=== PATIENT | female | born 1960 | race Hispanic/Latino ===

== ENCOUNTER 2018-02-27 15:51 | Emergency (ER) | payer BC ==
[2018-02-27 15:59] VITALS: RESP 18; TEMP 99.6; BMI 25.9
[2018-02-27 17:22] LABS: HEMOGLOBIN 11.8 g/dL (12.0-16.0); MEAN CELL VOLUME 97.2 fl (80.0-105.0); MEAN CORPUSCULAR HEMOGLOBIN 32.6 pg (25.0-35.0); MEAN CORPUSCULAR HGB CONC 33.5 g/dl (31.0-37.0); RBC 3.62 10^6/uL (3.5-6.1); RED CELL DISTRIBUTION WIDTH 13.1 % (11.5-14.5); WHITE BLOOD COUNT 6.8 10^3/uL (4.5-11.0)
[2018-02-27 17:23] LABS: BASO # 0.03 K/mm3 (0.0-2.0); BASO % 0.4 % (0.0-3.0); EOS % 0.1 % (1.5-5.0); GRAN # 5.09 (1.4-6.5); GRAN % 74.8 % (50.0-68.0); LYMPH # 1.1 (1.2-3.4); LYMPH % 16.6 % (22.0-35.0); MEAN PLATELET VOLUME 9.4 fl (7.0-11.0); MONO # 0.6 (0.1-0.6); MONO % 8.1 % (1.0-6.0)
--- NOTE | 2018-02-27 18:36 | ED PDOC ---
Arrival/HPI - General Chief Complaint: ENT Problem Time Seen by Provider: 02/27/18 15:53 Historian: Patient - History of Present Illness Narrative History of Present Illness (Text): 02/27/18 18:36 A 57 year old female with no significant past medical history presents to the emergency department sent in by her primary care doctor's office for right ear redness and facial redness/pain from earlier today. Patient states symptoms started 2 days ago and calims to have had intermittent fever at home. Patient reports she has taken tylenol to some relief. Patient denies any recent travel, trauma, change in hearing, drainage from ear, pain with swallowing, pain with eye movement, rhinorrhia, chest pain, shortness of breath, or any other complaints. Time/Duration: Other (2 days) Symptom Onset: Gradual Symptom Course: Unchanged Activities at Onset: Light Context: Other (Doctor's office) Past Medical History - Provider Review Nursing Documentation Reviewed: Yes - Integumentary Hx Squamous Cell Carcinoma: Yes - Psychiatric Hx Substance Use: No - Surgical History Hx Section: Yes (x 3) - Anesthesia Hx Anesthesia: Yes Hx Anesthesia Reactions: No Hx Malignant Hyperthermia: No Family/Social History - Physician Review Nursing Documentation Reviewed: Yes Family/Social History: No Known Family HX Smoking Status: Never Smoked Hx Alcohol Use: No Hx Substance Use: No Allergies/Home Meds Allergies/Adverse Reactions: Allergies No Known Allergies Allergy (Verified 02/27/18 16:01) Review of Systems - Physician Review All systems were reviewed & negative as marked: Yes - Review of Systems Eyes: Other. absent: Eye Pain (no pain with eye movement) ENT: absent: Hearing Changes, Rhinorrhea, Other (no drainage from ear, no pain while swallowing, ) Respiratory: absent: SOB Cardiovascular: absent: Chest Pain Musculoskeletal: Other (facial pain) Skin: Other (Redness to right ear and face) Physical Exam Vital Signs Reviewed: Yes Vital Signs Temp Pulse Resp BP Pulse Ox 02/27/18 15:58 99.6 F 110 H 18 149/105 H 100 Temperature: Afebrile Blood Pressure: Hypertensive Pulse: Tachycardic Respiratory Rate: Normal Appearance: Positive for: Well-Appearing, Non-Toxic Pain Distress: None - Systems Exam Head: Present: Atraumatic, Normocephalic Pupils: Present: PERRL Extroacular Muscles: Present: EOMI Conjunctiva: Present: Normal Ears: No: Other (no mastoid tenderness) Mouth: Present: Moist Mucous Membranes Neck: Present: Normal Range of Motion Respiratory/Chest: Present: Clear to Auscultation, Good Air Exchange. No: Respiratory Distress, Accessory Muscle Use Cardiovascular: Present: Regular Rate and Rhythm, Normal S1, S2. No: Murmurs Abdomen: No: Tenderness, Distention, Peritoneal Signs Back: Present: Normal Inspection Upper Extremity: Present: Normal Inspection. No: Cyanosis, Edema Lower Extremity: Present: Normal Inspection. No: Edema Neurological: Present: GCS=15, CN II-XII Intact, Speech Normal Skin: Present: Warm (Warm to touch), Erythematous (+erythema to right pinnae, erythema to anterior and posterioir to same right pinnae) Psychiatric: Present: Alert, Oriented x 3, Normal Insight, Normal Concentration Medical Decision Making ED Course and Treatment: 02/27/18 18:48 Impression: 57 year old female presenting with right ear redness and facial redness/pain. Plan: -- CMP -- Keflex -- Bactrim DS tablet -- Blood culture -- CT of the temporal bones without contrast -- Reassess and disposition Progress Notes: 02/27/18 18:50 Case discussed with nurse practitioner covering Dr. Gomes, if work up negative, patient can be treated for cellulitis in outpatient facility. 02/27/18 18:53 Procedure: CT of the temporal bones without contrast Impression: There are mild infiltration changes within the subcutaneous tissues- fat overlying the right lateral upper of face from approximately the level lower aspect of the parotid gland inferiorly over the right zygomatic arch and po steriorly to the level of the external auditory canal possibly involving the right pinna. Findings most consistent with a nonspecific cellulitis. The subjacent parotid gland appears unremarkable. There are no parotid masses or calcifications seen. No subcutaneous emphysema. No drainable fluid or abscess collection seen. Dictator: Akash Mims MD - Lab Interpretations Lab Results: 02/27/18 17:09 Lab Results 02/27/18 17:09: WBC 6.8, RBC 3.62, Hgb 11.8 L, Hct 35.2 L, MCV 97.2, MCH 32.6, MCHC 33.5, RDW 13.1, Plt Count 252, MPV 9.4, Gran % 74.8 H, Lymph % (Auto) 16.6 L, H[place]eth % (Auto) 8.1 H, Eos % (Auto) 0.1 L, Baso % (Auto) 0.4, Gran # 5.09, Lymph # (Auto) 1.1 L, [place] # (Auto) 0.6, Eos # (Auto) 0.0, Baso # (Auto) 0.03 - RAD Interpretation Radiology Orders: 02/27/18 18:12 MASTOIDS W/O CONTRAST [CT] Stat - Scribe Statement The provider has reviewed the documentation as recorded by the Scribe Cris Santos All medical record entries made by the Scribe were at my direction and personally dictated by me. I have reviewed the chart and agree that the record accurately reflects my personal performance of the history, physical exam, medical decision making, and the department course for this patient. I have also personally directed, reviewed, and agree with the discharge instructions and disposition. Disposition/Present on Arrival - Present on Arrival Any Indicators Present on Arrival: No History of DVT/PE: No History of Uncontrolled Diabetes: No Urinary Catheter: No History of Decub. Ulcer: No History Surgical Site Infection Following: None - Disposition Have Diagnosis and Disposition been Completed?: Yes Diagnosis: Cellulitis Disposition: HOME/ ROUTINE Disposition Time: 18:40 Condition: GOOD Discharge Instructions (ExitCare): Cellulitis (ED) Additional Instructions: NADEEM LYLES, thank you for letting us take care of you today. The emergency medical care you received today was directed at your acute symptoms. If you were prescribed any medication, please fill it and take as directed. It may take several days for your symptoms to resolve. Return to the Emergency Department if your symptoms worsen, do not improve, or if you have any other problems. Please contact your doctor or call one of the physicians/clinics you have been referred to that are listed on the Patient Visit Information form that is included in your discharge packet. Bring any paperwork you were given at discharge with you along with any medications you are taking to your follow up visit. Our treatment cannot replace ongoing medical care by a primary care provider outside of the emergency department. Thank you for allowing the [facility] team to be part of your care today. Follow up with Dr. Goems in 3 days for re-evaluation and further management. Return to the emergency room if you have any concerns. Prescriptions: Cephalexin [Keflex] 500 mg PO QID #28 capsule Ibuprofen [Motrin] 600 mg PO Q6 PRN #20 tab PRN Reason: Pain, Moderate (4-7) Sulfamethoxazole/Trimethoprim [Bactrim DS 800 mg-160 mg] 1 tab PO BID #14 tab Referrals: Kenny Gomes MD [Staff Provider] - Follow up with primary Forms: [employer] (Belgian)
--- NOTE | 2018-02-27 18:37 | CT ---
Date of service: 02/27/2018 PROCEDURE: CT OF THE TEMPORAL BONES WITHOUT CONTRAST HISTORY: Right-sided the facial swelling/reddness - r/o mastoiditis COMPARISON: None available. TECHNIQUE: High resolution axial images of the temporal bones were obtained. Coronal and sagittal reformats were generated. Radiation dose: Total exam DLP = 547.95 mGy-cm. This CT exam was performed using one or more of the following dose reduction techniques: Automated exposure control, adjustment of the mA and/or kV according to patient size, and/or use of iterative reconstruction technique. FINDINGS: RIGHT TEMPORAL BONE: RIGHT MIDDLE EAR: Normal. RIGHT INNER EAR: Cochlea: Normal. Semicircular canals: Normal. RIGHT MASTOID AIR CELLS: Normal. RIGHT INTERNAL AUDITORY CANAL: Normal. RIGHT EXTERNAL AUDITORY CANAL: Normal. RIGHT VESTIBULAR AND COCHLEAR AQUEDUCT: Normal. OTHER FINDINGS: None. LEFT TEMPORAL BONE: LEFT MIDDLE EAR: Normal. LEFT INNER EAR: Cochlea: Normal. Semicircular canals: Normal. LEFT MASTOID AIR CELLS: Normal. LEFT INTERNAL AUDITORY CANAL: Normal. LEFT EXTERNAL AUDITORY CANAL: Normal. LEFT VESTIBULAR AND COCHLEAR AQUEDUCT: Normal. OTHER FINDINGS: There are mild infiltration changes within the subcutaneous tissues-fat overlying the right lateral upper of face from approximately the level lower aspect of the parotid gland inferiorly over the right zygomatic arch and posteriorly to the level of the external auditory canal possibly involving the right pinna. Findings most consistent with a nonspecific cellulitis. The subjacent parotid gland appears unremarkable. There are no parotid masses or calcifications seen. No subcutaneous emphysema. No drainable fluid or abscess collection seen. These findings were discussed with Dr. Gutierrez at approximately 6:30 p.m. with written down and read back verification. IMPRESSION: There are mild infiltration changes within the subcutaneous tissues-fat overlying the right lateral upper of face from approximately the level lower aspect of the parotid gland inferiorly over the right zygomatic arch and posteriorly to the level of the external auditory canal possibly involving the right pinna. Findings most consistent with a nonspecific cellulitis. The subjacent parotid gland appears unremarkable. There are no parotid masses or calcifications seen. No subcutaneous emphysema. No drainable fluid or abscess collection seen. .
[2018-02-27] MEDS ORDERED: Tmp-Smz 800 mg-160 mg DS Tab PO STA (18:46)
[2018-02-27 18:49] LABS: ALB/GLOB RATIO 1.5 (1.1-1.8); ALBUMIN 4.6 g/dL (3.0-4.8); ALT/SGPT 39 U/L (7-56); AST/SGOT 33 U/L (14-36); BLOOD UREA NITROGEN 7 mg/dL (7-21); CALCIUM 9.4 mg/dL (8.4-10.5); GFR NON-AFRICAN AMERICAN > 60
[2018-02-27 19:26] VITALS: BP 138/91; PULSE 97; O2SAT 99
== END 2018-02-27 19:25 | disposition home or self-care (01) ==
LOC: ED 15:51
DX: H60.11 Cellulitis of right external ear (principal)